=== PATIENT | male | born 1995 | race Caucasian/White ===

== ENCOUNTER 2020-03-05 06:19 | Emergency (ER) | payer OTHER, SELFPAY ==
[2020-03-05 06:23] VITALS: BP 142/85; PULSE 96; RESP 16; TEMP 36.7; O2SAT 99
--- NOTE | 2020-03-05 06:26 | W.ED.GENAD ---
Discharge Plan Disposition Patient Disposition: HOME Condition: Good Discharge Details Chief Complaint: Laceration Clinical Impression: Finger laceration Primary Care Provider: Teresa Sherwood ED Provider: Jeremy Turk Home Meds and New Rx's Prescriptions: No Action No Known Home Meds RF: 0 Discharge Instructions Instructions: Finger Laceration (ED), Care For Your Absorbable Stitches (ED) Additional Instructions: Please leave the dressing on for 24 hours, then you may remove and begin cleaning the wound at least twice a day with soap and water. Continue to apply antibiotic ointment. Do not directly soak the area. Watch for any signs of infection and return if any increasing redness, swelling, pain, drainage. The sutures should fall out on their own in 7 to 10 days, if they have not fallen out by 10 days you can scrub them gently with warm soapy water. If you notice any worsening of your symptoms, or any new symptoms such as vomiting, diarrhea, fever, chills, shortness of breath, chest pain, numbness, weakness, or fainting , please return immediately to the emergency department for reevaluation. Please follow up with your primary care provider as soon as possible for reassessment and reevaluation. As always, it was a pleasure participating in your medical care today. 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 Patient was at the end of his shift when a clean cutting knife at his factory sliced between his third and fourth digit on the left hand. Was on the palmar aspect. He denies any numbness tingling or weakness. He applied clotting agent and came in immediately to be treated. No other complaints at this time. No other modifying factors. Patient demonstrates a 7.5 mm linear laceration at the webspace between the third and fourth digit. No deep structures appear to be violated. The patient demonstrates good flexion extension of the finger, good two-point discrimination. The finger/laceration was sutured with 4 simple interrupted sutures using 5-0 Chromic Gut. Small amount of Dermabond was placed on the knots. Patient tolerated procedure well. No indication for antibiotics or imaging at this time. Patient will be discharged home. Discussed red flags which to return. I have extensively reviewed the treatment plan and discharge instructions with the patient. I have addressed all patient concerns at this time. The patient was made aware of what symptoms to monitor for that would warrant a return to the emergency department. Discussed the plan with the patient, they demonstrate verbal understanding and agreement with our assessment and plan at this time. HPI General Date/Time Provider Initiated Documentation: 03/05/20 06:20. 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 Patient was at the end of his shift when a clean cutting knife at his factory sliced between his third and fourth digit on the left hand. Was on the palmar aspect. He denies any numbness tingling or weakness. He applied clotting agent and came in immediately to be treated. No other complaints at this time. No other modifying factors. Related Data Home Medications Medication Instructions Recorded Confirmed Unknown [No Known Home Meds] 10/07/17 10/07/17 Allergies Allergy/AdvReac Type Severity Reaction Status Date / Time horse dander Allergy Unverified 10/07/17 14:33 Penicillins Allergy Unverified 10/07/17 14:33 General Stated Complaint: Laceration MANAS: 4 Review of Systems All systems reviewed & are unremarkable except as noted in HPI and below [facility] Social History Smoking/Tobacco Use Status: Never Alcohol Intake: current Drug use: Never Substance use type: does not use Do you feel safe at home: Yes Do you feel safe in your relationship?: Yes Exam Narrative Exam Narrative: 1.Const: Well-nourished, Well-developed, appearing stated age 2.Eyes: PERRL, no conjunctival injection, and symmetrical lids. 3.ENT: Atraumatic external nose and ears. Moist MM. Neck: Symmetric, trachea midline, No thyromegaly. 4.CVS: +S1/S2, No murmurs or gallops. Peripheral pulses 2+ and equal in all extremities. Brisk capillary refill in all extremities. 5.RESP: Unlabored respiratory effort. Clear to auscultation bilaterally. No wheezes rales or rhonchi 6.GI: Soft, Nontender/Nondistended, No hepatosplenomegaly. No guarding or rebound. 7.MSK: Normocephalic, Extremities w/o deformity or ttp. No cyanosis or clubbing, Normal movement of all extremities. Left hand: Symmetrically palpable radial and ulnar pulses. Capillary refill less than 2 seconds to all digits. Intact sensation to light touch of the radial, median and ulnar nerves demonstrated by testing in the dorsal web space of the thumb, the distal palmar aspect of the index finger, and the lateral surface of the fifth finger. 2 point discrimination intact to 5mm (up to 6mm can be normal in digits 3-5) of discrimination in the affected digit of the middle finger. intact motor function of the radial, median and ulnar nerves demonstrated by strength of extension of the isolated distal joint of the index finger, hand display manager, and spreading of the 2nd through 5th digits. Intact recurrent median nerve as demonstrated by ability to move thumb fully through opposition, abduction and flexion. No snuffbox tenderness. Small 7.5 mm linear superficial laceration over the finger webbing of the third digit of the medial aspect. No evidence of deep tendon injury. 8.Skin: Warm, Dry. No rashes or lesions. 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 Sensation grossly intact, no focal neurologic deficits. 10.Psych: (AAO) x3. Appropriate mood and affect Course Vital Signs Vital signs: Vital Signs Temperature 36.7 C 03/05/20 06:23 Pulse 961 H 03/05/20 06:23 Respiratory Rate 6 L 03/05/20 06:23 Blood Pressure 142/85 H 03/05/20 06:23 Pulse Oximetry 99 03/05/20 06:23 Temperature 36.7 C 03/05/20 06:23 Temperature Source Skin 03/05/20 06:23 Pulse 961 H 03/05/20 06:23 Respiratory Rate 6 L 03/05/20 06:23 Blood Pressure 142/85 H 03/05/20 06:23 Blood Pressure Position Sitting 03/05/20 06:23 Pulse Oximetry 99 03/05/20 06:23 Oxygen Delivery Method Room Air 03/05/20 06:23 Oxygen Flow Rate 0 03/05/20 06:23 Pain Level 2 03/05/20 06:23 Procedures Laceration Laceration 1: Site: hand Side (If applicable): left Size (cm): 0.75 Description: linear Depth: simple, single layer Local Anesthetic: Lidocaine 1% Amount of anesthesia used (mL): 3 Pre-repair: wound explored, irrigated extensively and deep structures intact Skin layer closed with: other (chromic gut) Size (cm): 5-0 Number of sutures: 4
== END 2020-03-05 06:45 | disposition home or self-care (01) ==
LOC: ER 06:49
PROVIDERS: Emergency Provider Student in an Organized Health Care Education/Training Program; PCP Internal Medicine
DX: S61.213A Laceration without foreign body of left middle finger without damage to nail, initial encounter (principal); W26.0XXA Contact with knife, initial encounter
CPT/HCPCS: 12001; 90471